=== PATIENT | male | born 1995 | race Caucasian/White ===

== ENCOUNTER 2018-02-26 07:32 | Day surgery (SDC) | payer OTHER ==
[2018-02-19 11:07] LABS: HEMATOCRIT 45.3 % (37.9-51.0); HEMOGLOBIN 16.2 g/dL (13.5-17.0); MEAN CORPUSCULAR HEMOGLOBIN 30.9 pg (27.0-33.4); MEAN CORPUSCULAR HGB CONC 35.6 g/dL (32.0-36.0); MEAN CORPUSCULAR VOLUME 87 fl (80-97); PLATELET COUNT 247 10^3/uL (150-450); RED BLOOD COUNT 5.23 10^6/uL (4.35-5.55); RED CELL DISTRIBUTION WIDTH 13.4 % (11.5-14.0); WHITE BLOOD COUNT 6.4 10^3/uL (4.0-10.5)
[2018-02-19 11:32] LABS: ANION GAP 12 (5-19); BLOOD UREA NITROGEN 15 mg/dL (7-20); CALCIUM 9.9 mg/dL (8.4-10.2); CARBON DIOXIDE 29 mmol/L (22-30); CHLORIDE 103 mmol/L (98-107); GLUCOSE 89 mg/dL (75-110); POTASSIUM 4.5 mmol/L (3.6-5.0); SODIUM 143.6 mmol/L (137-145)
[2018-02-19 12:35] LABS: APPEARANCE,URINE SLIGHTLY-CLOUDY; BILIRUBIN,URINE NEGATIVE (NEGATIVE); COLOR,URINE YELLOW; GLUCOSE, URINE NEGATIVE (NEGATIVE); KETONES,URINE NEGATIVE (NEGATIVE); LEUKOCYTE ESTERASE,URINE NEGATIVE (NEGATIVE); NITRITE,URINE NEGATIVE (NEGATIVE); PROTEIN,URINE NEGATIVE (NEGATIVE); URINE SPECIFIC GRAVITY 1.011; UROBILINOGEN,URINE NEGATIVE mg/dL (<2.0)
[~2018-02-26 07:32] MED LIST: CEFAZOLIN 2 GM/D5W RTU 2 GM/50 ML RTUPB IV PRN; LACTATED RINGERS 1000 ML IV PRN; LIDOCAINE 0.5% INJ-PF (5 MG/ML) 50 ML SDV SUBCUT PRN
[2018-02-26] MEDS ORDERED: DEXAMETHASONE SOD PHOSPHATE INJ 4 MG/1 ML VIAL ONE (07:56)
[2018-02-26] MEDS ORDERED: ONDANSETRON HCL INJ/PF 4 MG/2 ML SDV ONE (07:56)
[2018-02-26] MEDS ORDERED: KETOROLAC TROMETHAMINE 60 MG/2 ML SDV ONE (07:56)
[2018-02-26] MEDS ORDERED: BUPIVACAINE HCL 0.5 % INJ/PF 30 ML SDV ONE (08:47)
[2018-02-26] MEDS ORDERED: FENTANYL CITRATE INJ/PF 250 MCG/5 ML AMPULE ONE (09:57)
[2018-02-26] MEDS ORDERED: DEXMEDETOMIDINE INJ 80 MCG/20 ML VIAL IV ONE (09:58)
[2018-02-26] MEDS ORDERED: MIDAZOLAM 2 MG/2 ML INJ ONE (09:58)
[2018-02-26] MEDS ORDERED: ACETAMINOPHEN 1,000 MG/100 ML RTUPB IV ONE (09:58)
[2018-02-26] MEDS ORDERED: PROPOFOL INJ 200 MG/20 ML VIAL IV ONE (09:58)
[2018-02-26] MEDS ORDERED: FENTANYL CITRATE INJ/PF 100 MCG/2 ML AMPUL ONE ×2 (09:58→13:27)
[2018-02-26] MEDS ORDERED: MEPERIDINE HCL/PF INJ 25 MG/1 ML DISP.SYRIN IV PRN (11:11)
[2018-02-26] MEDS ORDERED: DIPHENHYDRAMINE HCL 50 MG/ML VIAL IV PRN (11:11)
[2018-02-26] MEDS ORDERED: PROMETHAZINE HCL INJ 25 MG/1 ML VIAL IV PRN ×2 (11:11)
[2018-02-26] MEDS ORDERED: FENTANYL CITRATE INJ/PF 100 MCG/2 ML AMPUL IV PRN ×3 (11:11)
--- NOTE | 2018-02-26 13:22 | Operative Report ---
Operative Report DATE OF SURGERY: 02/26/18 PREOPERATIVE DIAGNOSIS: Left proximal scaphoid nonunion POSTOPERATIVE DIAGNOSIS: Left proximal scaphoid nonunion OPERATION: Open reduction internal fixation with vascularized bone graft Left proximal scaphoid nonunion SURGEON: KAMARI BANDA ANESTHESIA: GA COMPLICATIONS: None ESTIMATED BLOOD LOSS: Minimal PROCEDURE: Indication for above procedure: 22-year-old male who sustained injury to his left wrist. Unfortunately patient had delayed presentation and was then found to have a proximal scaphoid nonunion. He was stationed in [place] and then sent to [place] where he was to be set up for operative intervention. Ultimately patient was referred to sc for further evaluation and treatment. We discussed findings on radiographs CT scan and MRI demonstrating the scaphoid nonunion at the high risk of persistent nonunion and development of posttraumatic arthritis. After discussing postoperative prognosis and outcomes including the risk of persistent nonunion despite operative intervention decision was made to proceed with operative intervention. Risks and benefits were explained patient verbalized understanding consented for the procedure. Procedure In Detail: Patient was seen and evaluated in the preoperative holding area. The upper extremity was initialized and marked. Patient received 2g of Ancef IV for bacterial prophylaxis. Patient was taken back to the operative room where transferred to the operative table and placed under general anesthesia. Once they were adequately anesthetized a nonsterile tourniquet was placed on the upper extremity. A surgical team debriefing was performed ensuring all instrumentation was available, the surgical procedure was discussed with possible concerns reviewed. The upper extremity was prepped with chlorhexidine and alcohol and draped in a sterile fashion. A timeout was done identifying correct patient, procedure and extremity everyone in attendance agree with this and verbalized no concerns. The extremity was elevated the tourniquet was inflated to 250 mmHg. Curvilinear skin incision was made beginning at the anatomic snuffbox passing just radial to Giovanni's tubercle. Blunt dissection was performed. Branches of the superficial radial nerve were identified and retracted with a skin flap along with the basilic vein. Any peripheral bleeding was coagulated bipolar cautery. The third dorsal compartment was opened and the EPL retracted in a ulnar direction. I then identified the septum between the first and second dorsal compartments, a portion of the first and second dorsal compartment was released distally. The 1, 2ICSRA was identified within the septum I then bluntly dissected radially and ulnarly to this including the capsule to maintain the pedicle as it exited from the radial artery approximately 1 mm proximal to the radial styloid. Once the pedicle and the vascularized bone graft was mapped out I turned my attention to exposure of the scaphoid nonunion. The ECRB/ECRL retracted in a radial direction exposing the capsule. A transverse capsulotomy was made centered over the nonunion site confirmed with C arm fluoroscopy. There was fragmentation of the cartilage along the radial portion but remaining cartilage remained intact. Given the intact cartilage of the radius and majority of the scaphoid with an adequate proximal pole decision was made to proceed with fixation and bone grafting. With a curette the proximal and distal fragment was debrided until normal-appearing tissue was evident there was a vascularity of the proximal pole in appearance. Once adequately debrided the K wire was placed reducing the fragment. I then measured a Radha 2.0 mm headless compression screw next-day fragment to ensure there is adequate bone for fixation. Once this was confirmed the appropriate K wires placed in a more volar directed position I then placed the [place] 2.0 mm headless compression screw which provided interfragmentary compression. I then turned my attention to harvesting the vascularized bone graft. Via sharp dissection radial and ulnar portions of the periosteum overlying the vascularized bone graft was done under C arm fluoroscopy. I then used a 0.045 K wire to rowdy out the bone graft site which is approximately 1 cm proximal to the radial styloid. I then elevated the pedicle and the bone graft was carefully removed with an osteotome. The most distal portion was completed with an osteotome while my assistant oceanographer lifted the pedicle to avoid iatrogenic injury. This was then freed up to the branching point of the radial artery to allow adequate pedicle length for fixation. The wound was then copiously irrigated with normal saline and I turned my attention to the nonunion site. The graft was tunneled underneath the ECRB/ECRL and EPL and had adequate pedicle length to the nonunion site. The nonunion site was then a cortical window was placed to the nonunion site until the headless compression screw was visualized. The vascularized bone graft and cortical window were contoured to obtain appropriate fit. A K wire was then placed antegrade from dorsal to volar to allow fixation of the pedicle graft. The wound was irrigated with normal saline and cancellus graft from the harvest site was impacted into the nonunion site. I then impacted the vascular pedicle into position and the 0.045 K wire transverse the bone graft to allow fixation. There was adequate fixation of the bone graft noted with range of motion. Final C-arm fluoroscopy radiographs were obtained confirming adequate fixation normal scapholunate angle was noted on lateral view. Under direct visualization once again the headless compression screw was recessed below the articular surface to avoid future hardware irritation. The tourniquet was then deflated. Compression was held for 2 minutes any peripheral bleeding was controlled with bipolar cautery until the wound was dry. Under direct visualization through the skin incision and additional two 0.045 K wires were placed obtaining fixation from the scaphoid into the capitate during retraction of the skin flap the superficial radial nerve was identified and retracted to ensure no evidence of iatrogenic injury. The capsule was closed with interrupted 3-0 Ethibond suture. The bone graft harvest site was impacted with a Gelfoam. The EPL remained within its third dorsal compartment without evidence of stricture. Subcutaneous tissues were then closed with interrupted 4-0 Monocryl suture. Skin was closed with horizontal mattress running 4-0 nylon. 30 cc of 0.5% Marcaine without epinephrine was injected for postoperative pain control. Patient was placed in a volar and dorsal 4 inch fiberglass splint. Sponge counts, instrument counts, needle counts counts were correct. Patient was then awoken from anesthesia. Transferred from the operating room table to the operating room stretcher. There was no intraoperative complications patient tolerated procedure well stable to PACU. Postoperative plan: Patient will follow-up in the office 2 weeks postoperatively. Will obtain radiographs at that time. Plan will be to maintain K wires for 6-10 weeks pending radiographic findings and patient comfort.
--- NOTE | 2018-02-26 13:22 | Discharge Summary ---
Discharge Summary (SDC) - Discharge Final Diagnosis: Left proximal scaphoid nonunion Date of Surgery: 02/26/18 Discharge Date: 02/26/18 Condition: Good Treatment or Instructions: Schedule Follow Up w/ Dr. Alex Ko @ [facility] for Surgery to be seen in 10-14 days or as scheduled [place]: [place]: [place]: Ice and elevate Keep splint clean/dry/intact. If your fingers become numb please unwrap the Aj wrap but leave the splint in place, if the sensation does not return within 30 minutes please return to the emergency department. May begin finger range of motion attempting to make full fist. Please use ibuprofen (Motrin or Advil) 600-800 mg every 8 hours as needed for pain or fever DO NOT TAKE w/ TORADOL may use once TORADOL complete. You may also use acetaminophen (Tylenol) 1000 mg every 4-6 hours as needed for pain or fever. Please be aware that many medications contain acetaminophen, do not exceed a total of 1000 mg of acetaminophen every 6 hours. If ibuprofen and acetaminophen are not sufficient for your pain you may take the Percocet/[place]. Please be aware that the Percocet/[place]hel does contain Tylenol. Stool softener of choice when on pain medication. Prescriptions: Ketorolac Tromethamine [Toradol 10 mg Tablet] 10 mg PO Q6 #10 tablet Oxycodone HCl/Acetaminophen [Percocet 5-325 mg Tablet] 1 tab PO Q6 #35 tab Discharge Diet: As Tolerated Respiratory Treatments at Home: Deep Breathing/Coughing Discharge Activity: No Lifting Over 10 Pounds, No Lifting/Push/Pulling Report the Following to Your Physician Immediately: Fever over 101 Degrees, Unusual Bleeding, Redness, Swelling, Warmth, Increased Soreness
[2018-02-26] MEDS ORDERED: ONDANSETRON HCL INJ/PF 4 MG/2 ML SDV IV PRN (13:23)
[2018-02-26] MEDS ORDERED: OXYCODONE-ACETAMINOPHEN 5-325 MG TABLET PO PRN (13:23)
[2018-02-26] MEDS ORDERED: HYDROMORPHONE HCL INJ/PF 2 MG/ML AMPULE IV PRN (13:23)
--- NOTE | 2018-02-26 14:18 | RADIOLOGY REPORT (SQ) ---
EXAM DESCRIPTION: WRIST LEFT 3 VIEWS; NO CHG FLUORO COMPLETED DATE/TIME: 02/26/2018 2:08 pm REASON FOR STUDY: ORIF LEFT WRIST ASST WITH FLUORO IN OR S62.032K DISP FX OF PROX 3RD OF NAVIC BONE OF L WRS, 7THK COMPARISON: None. FLUOROSCOPY TIME: 1 minute 6 seconds 5 digital fluoro images saved to PACS. TECHNIQUE: Intra-operative images acquired during surgical procedure to evaluate progress. NUMBER OF IMAGES: 5 LIMITATIONS: None. FINDINGS: Intraprocedure imaging and fluoro during K-wire placement across the carpal bones. Sclero tic proximal half scaphoid bone. Please see the operative report for further details IMPRESSION: Intra procedural imaging and fluoro COMMENT: Quality ID [id number]: Final reports for procedures using fluoroscopy that document radiation exp osure indices, or exposure time and number of fluorographic images (if radiation exposure indices are not available) Please consult full operative report of the attending physician for description of the procedure. TECHNICAL DOCUMENTATION: JOB ID: [id number] [employer]- All Rights Reserved Reading location - IP/workstation name: [email or web address]
--- NOTE | 2018-02-26 14:18 | RADIOLOGY REPORT (SQ) ---
EXAM DESCRIPTION: WRIST LEFT 3 VIEWS; NO CHG FLUORO COMPLETED DATE/TIME: 02/26/2018 2:08 pm REASON FOR STUDY: ORIF LEFT WRIST ASST WITH FLUORO IN OR S62.032K DISP FX OF PROX 3RD OF NAVIC BONE OF L WRS, 7THK COMPARISON: None. FLUOROSCOPY TIME: 1 minute 6 seconds 5 digital fluoro images saved to PACS. TECHNIQUE: Intra-operative images acquired during surgical procedure to evaluate progress. NUMBER OF IMAGES: 5 LIMITATIONS: None. FINDINGS: Intraprocedure imaging and fluoro during K-wire placement across the carpal bones. Sclero tic proximal half scaphoid bone. Please see the operative report for further details IMPRESSION: Intra procedural imaging and fluoro COMMENT: Quality ID [id number]: Final reports for procedures using fluoroscopy that document radiation exp osure indices, or exposure time and number of fluorographic images (if radiation exposure indices are not available) Please consult full operative report of the attending physician for description of the procedure. TECHNICAL DOCUMENTATION: JOB ID: [id number] [employer]- All Rights Reserved Reading location - IP/workstation name: [email or web address]
[2018-02-26 16:56] VITALS: BP 109/54
== END 2018-02-26 15:40 | disposition home or self-care (01) ==
LOC: OROUT 07:32
PROVIDERS: ATTEND Orthopaedic Surgery
DX: S62.032K Displaced fracture of proximal third of navicular [scaphoid] bone of left wrist, subsequent encounter for fracture with nonunion (principal); Y93.61 Activity, american tackle football; X58.XXXD Exposure to other specified factors, subsequent encounter; F17.210 Nicotine dependence, cigarettes, uncomplicated
CPT/HCPCS: 36415; 85027; 80048; 81001; 73110; 25440; C1713 ×3; J2250; J3490 ×2; J1100; J1885; J3010 ×2; J2405; J2704; J0690; J0131; 01830

== ENCOUNTER 2018-11-26 05:35 | Day surgery (SDC) | payer OTHER ==
[2018-11-19 09:42] LABS: ABSOLUTE BASOPHILS # (AUTO) 0.1 10^3/uL (0.0-0.2); ABSOLUTE EOSINOPHILS # (AUTO) 0.2 10^3/uL (0.0-0.6); ABSOLUTE LYMPHOCYTES (AUTO) 2.1 10^3/uL (0.5-4.7); ABSOLUTE MONOCYTES (AUTO) 0.5 10^3/uL (0.1-1.4); ABSOLUTE NEUT (AUTO) 3.5 10^3/uL (1.7-8.2); EOSINOPHILS % (AUTO) 2.6 % (0-6); HEMATOCRIT 48.9 % (37.9-51.0); LYMPHOCYTES % (AUTO) 33.8 % (13-45); MEAN CORPUSCULAR HEMOGLOBIN 30.6 pg (27.0-33.4); MEAN CORPUSCULAR HGB CONC 34.8 g/dL (32.0-36.0); MEAN CORPUSCULAR VOLUME 88 fl (80-97); MONOCYTES % (AUTO) 7.6 % (3-13); PLATELET COUNT 301 10^3/uL (150-450); RED BLOOD COUNT 5.56 10^6/uL (4.35-5.55); TOTAL CELLS COUNTED % (AUTO) 100 %; WHITE BLOOD COUNT 6.3 10^3/uL (4.0-10.5)
[2018-11-19 09:57] LABS: ANION GAP 10 (5-19); BLOOD UREA NITROGEN 14 mg/dL (7-20); CALCIUM 10.4 mg/dL (8.4-10.2); CARBON DIOXIDE 31 mmol/L (22-30); CHLORIDE 103 mmol/L (98-107); GLUCOSE 86 mg/dL (75-110); POTASSIUM 4.8 mmol/L (3.6-5.0); SODIUM 143.5 mmol/L (137-145)
[2018-11-26] MEDS ORDERED: MIDAZOLAM 2 MG/2 ML INJ ONE (06:50)
[2018-11-26] MEDS ORDERED: KETAMINE HCL INJ 500 MG/10 ML VIAL ONE (06:50)
[2018-11-26] MEDS ORDERED: FENTANYL CITRATE INJ/PF 250 MCG/5 ML AMPULE ONE (06:51)
[2018-11-26] MEDS ORDERED: PROPOFOL INJ 200 MG/20 ML VIAL IV ONE (06:51)
[2018-11-26] MEDS ORDERED: LIDOCAINE 1% INJ-PF (10 MG/ML) 30 ML SDV ONE (07:12)
[2018-11-26] MEDS ORDERED: BUPIVACAINE HCL 0.5 % INJ/PF 30 ML SDV ONE (07:12)
[2018-11-26] MEDS ORDERED: CEFAZOLIN INJ 1 GM VIAL ONE (08:00)
[2018-11-26] MEDS ORDERED: LIDOCAINE 2% INJ (20 MG/ML) 20 ML MDV ONE (08:21)
[2018-11-26] MEDS ORDERED: LIDOCAINE 2%/EPINEPHRINE INJ 20 ML VIAL ONE (08:21)
[2018-11-26] MEDS ORDERED: PROMETHAZINE HCL INJ 25 MG/1 ML VIAL IV PRN (08:21)
[2018-11-26] MEDS ORDERED: FENTANYL CITRATE INJ/PF 100 MCG/2 ML AMPUL IV PRN ×3 (08:21)
[2018-11-26] MEDS ORDERED: DIPHENHYDRAMINE HCL 50 MG/ML VIAL IV PRN (08:21)
[2018-11-26] MEDS ORDERED: MEPERIDINE HCL/PF INJ 25 MG/1 ML DISP.SYRIN IV PRN (08:21)
[2018-11-26] MEDS ORDERED: MORPHINE SULFATE 10 MG/ML INJ IV PRN ×2 (08:21→09:56)
[2018-11-26] MEDS ORDERED: ONDANSETRON HCL INJ/PF 4 MG/2 ML SDV IV PRN ×2 (08:21→09:56)
[2018-11-26] MEDS ORDERED: ROPIVACAINE HCL 0.5% INJ/PF (5 MG/1 ML) 30 ML SDV ONE (08:22)
[2018-11-26] MEDS ORDERED: OXYCODONE-ACETAMINOPHEN 5-325 MG TABLET PO PRN (09:56)
--- NOTE | 2018-11-26 10:08 | Discharge Summary ---
Discharge Summary (SDC) - Discharge Final Diagnosis: Left proximal pole scaphoid nonunion Date of Surgery: 11/26/18 Discharge Date: 11/26/18 Condition: Good Treatment or Instructions: Schedule Follow Up w/ Dr. Alex Ko @ [facility] for Surgery to be seen in 10-14 days or as scheduled [place]: [place]: [place]: May remove dressing on postop day #3, keep incision covered and dry. Ice and elevate May begin finger range of motion attempting to make full fist. Stool softener of choice when on pain medication. ORAL NARCOTIC MEDICATION: You have been given a prescription for pain control. This medication is a narcotic. It's best taken with food, as nausea can result if taken on an empty stomach. Don't operate machinery or drive within six hours of taking this medication. Do not combine this medicine with alcohol, or with any medication which can cause sedation (such as cold tablets or sleeping pills) unless you get permission from the physician. Narcotics tend to cause constipation. If possible, drink plenty of fluids and eat a diet high in fiber and fruits. Please be aware that prescription narcotics also have the potential for abuse. People become addicted to these medications because of the general sense of wellbeing that they induce. This feeling along with a significant reduction in tension, anxiety, and aggression provides a stimulating seductive quality to these drugs. Once your pain is under control, we encourage you to discard your unused narcotics. Prescriptions: Ketorolac Tromethamine [Toradol 10 mg Tablet] 10 mg PO Q8HP PRN #12 tablet PRN Reason: Oxycodone HCl/Acetaminophen [Percocet 5-325 mg Tablet] 1 tab PO Q6 PRN #25 tab PRN Reason: Discharge Diet: As Tolerated Respiratory Treatments at Home: Deep Breathing/Coughing Discharge Activity: No Lifting Over 10 Pounds, No Lifting/Push/Pulling Report the Following to Your Physician Immediately: Fever over 101 Degrees, Unusual Bleeding, Redness, Swelling, Warmth, Increased Soreness
--- NOTE | 2018-11-26 10:10 | Operative Report ---
Operative Report DATE OF SURGERY: 11/26/18 PREOPERATIVE DIAGNOSIS: Left wrist proximal pole scaphoid nonunion with failed vascularized bone graft POSTOPERATIVE DIAGNOSIS: Same OPERATION: Removal hardware left wrist with scaphoid excision midcarpal arthrodesis, PIN neurectomy SURGEON: KAMARI BANDA ANESTHESIA: GA COMPLICATIONS: None ESTIMATED BLOOD LOSS: Minimal PROCEDURE: Indication for above procedure: 23-year-old male who sustained a proximal pole scaphoid nonunion. Underwent attempted vascularized bone graft unfortunately patient had persistent nonunion. Despite measures decision was then made to proceed with salvage procedure which included midcarpal arthrodesis. Postoperative expectations outcomes were explained to the patient who verbalized understanding consented for surgical procedure. Procedure In Detail: Patient was seen and evaluated in the preoperative holding area. The LEFT upper extremity was initialized and marked. Patient received 2g of Ancef IV for bacterial prophylaxis. Patient was taken back to the operative room where transferred to the operative table and placed under general anesthesia. Once they were adequately anesthetized a nonsterile tourniquet was placed on the upper extremity. A surgical team debriefing was performed ensuring all instrumentation was available, the surgical procedure was discussed with possible concerns reviewed. The upper extremity was prepped with chlorhexidine and alcohol and draped in a sterile fashion. A timeout was done identifying correct patient, procedure and extremity everyone in attendance agree with this and verbalized no concerns. The extremity was exsanguinated the tourniquet was inflated to 250 mmHg. Previous skin incision was utilized. Blunt dissection was performed. Plan superficial radial nerve was identified within the scar tissue and retracted. There was significant scarring between the second and third dorsal compartments. The interval between the third and fourth dorsal compartment was utilized. The EPL tendon was identified and transposed in a radial direction. Along the floor the fourth dorsal compartment remnant of the posterior interosseous nerve was identified and a PIN neurectomy was performed. A T-shaped capsulotomy was then made within the radiocarpal joint. There is significant scar tissue noted throughout the radiocarpal and midcarpal joint. This was then excised to expose the scaphoid. Nonunion of the proximal pole of scaphoid was confirmed. Previous screw was identified and removed. Meticulous dissection was performed around the scaphoid and this was then successfully excised. On the back table cancellus bone was harvested from the scaphoid to use for later arthrodesis. Under direct visualization there is no evidence of radial- lunate degeneration thus decision was made to proceed with midcarpal arthrodesis. The proximal aspect of the capitate was debrided down to cancellus bone. With a rongeur and osteotome the distal aspect of the lunate was debrided until normal-appearing cancellus bone was identified. A 0.045 K wire was placed into the capitate and lunate to act as joysticks. The capitolunate articulation was reduced correcting the capitolunate angle and deformity DISI. C-arm fluoroscopy was obtained confirming appropriate coverage of the capitate/lunate and appropriate alignment. A reduction tenaculum was placed around the capitate-lunate articulation to provide compression. 0.045 K wires placed transarticular to maintain reduction. With a measuring device for the NotehallE speed fix wm a 13 x 10 mm staple was chosen. K wires were placed proximally within the lunate and distally within the capitate to ensure adequate placement of the K wire. K wire was and in the ulnar direction along the lunate to avoid cut out radially. This was then drilled and a trough was made between the staple arms. The 13 x 10 mm staple was then impacted into position providing compression radially. Once again K wires were placed proximally distally and a 13 x 10 mm staple was chosen C arm fluoroscopy was obtained confirming appropriate placement. The proximal distal aspect was drilled and a trough made. The 13 x 10 mm staple was impacted into position providing optimal compression. Wound was then copiously irrigated with normal saline. K wires were removed. Wrist demonstrated 6 surgery of flexion with 65 degrees of extension. There is no impingement of the hardware along the radial-carpal joint. C-arm fluoroscopy was obtained confirming compression of the midcarpal arthrodesis with acceptable alignment. Previous bone graft from the distal scaphoid was then impacted into the defect. Capsulotomy was closed with interrupted 3-0 Vicryl suture. Retinaculum was closed with interrupted 3-0 Monocryl suture leaving the EPL transposed. Subcutaneous tissues were closed with interrupted 3-0 Monocryl suture. Skin was closed with interrupted horizontal mattress 4-0 nylon suture. Was dressed Xeroform 4 x 4's and patient was placed in a volar and dorsal fiberglass splint maintaining the neutral position. Sponge counts, instrument counts, needle counts were correct. Patient was then awoken from anesthesia. Transferred from the operating room table to the operating room stretcher. There was no intraoperative complications patient tolerated procedure well stable to PACU. Postoperative plan: Patient follow-up the office in 2 weeks at which point we will obtain radiographs. Patient will begin bone stimulator immediately. Will obtain CT scan to confirm union at approximately 6 weeks postoperatively.
[2018-11-26] MEDS ORDERED: LIDOCAINE 2% INJ-PF (100 MG/5 ML) SYRINGE ONE (10:20)
[2018-11-26] MEDS ORDERED: ACETAMINOPHEN 1,000 MG/100 ML RTUPB IV ONE (10:55)
[2018-11-26] MEDS ORDERED: KETOROLAC TROMETHAMINE INJ/PF 30 MG/1 ML SDV ONE (10:55)
--- NOTE | 2018-11-26 11:04 | RADIOLOGY REPORT (SQ) ---
EXAM DESCRIPTION: WRIST LEFT 3 VIEWS; NO CHG FLUORO COMPLETED DATE/TIME: 11/26/2018 10:20 am REASON FOR STUDY: HARDWARE REMOVAL LEFT WRIST FUSION ASST WITH FLUORO IN OR S62.032K DISP FX OF PRO X 3RD OF NAVIC BONE OF L WRS, 7THK COMPARISON: Left wrist films 02/26/2018 FLUOROSCOPY TIME: 37 seconds 5 digital C-arm images saved to PACS. TECHNIQUE: Intra-operative images acquired during surgical procedure to evaluate progress. NUMBER OF IMAGES: 5 digital C-arm images LIMITATIONS: None. FINDINGS: Post resection of the scaphoid bone and fusion at the lunatocapitate joint. Good alignmen t. Please see the operative report. IMPRESSION: IMAGE(S) OBTAINED DURING PROCEDURE. COMMENT: Quality ID 145: Final reports for procedures using fluoroscopy that document radiation exp osure indices, or exposure time and number of fluorographic images (if radiation exposure indices are not available) Please consult full operative report of the attending physician for description of the procedure. TECHNICAL DOCUMENTATION: JOB ID: [id number] [employer]- All Rights Reserved Reading location - IP/workstation name: [email or web address]
--- NOTE | 2018-11-26 11:04 | RADIOLOGY REPORT (SQ) ---
EXAM DESCRIPTION: WRIST LEFT 3 VIEWS; NO CHG FLUORO COMPLETED DATE/TIME: 11/26/2018 10:20 am REASON FOR STUDY: HARDWARE REMOVAL LEFT WRIST FUSION ASST WITH FLUORO IN OR S62.032K DISP FX OF PRO X 3RD OF NAVIC BONE OF L WRS, 7THK COMPARISON: Left wrist films 02/26/2018 FLUOROSCOPY TIME: 37 seconds 5 digital C-arm images saved to PACS. TECHNIQUE: Intra-operative images acquired during surgical procedure to evaluate progress. NUMBER OF IMAGES: 5 digital C-arm images LIMITATIONS: None. FINDINGS: Post resection of the scaphoid bone and fusion at the lunatocapitate joint. Good alignmen t. Please see the operative report. IMPRESSION: IMAGE(S) OBTAINED DURING PROCEDURE. COMMENT: Quality ID [id number]: Final reports for procedures using fluoroscopy that document radiation exp osure indices, or exposure time and number of fluorographic images (if radiation exposure indices are not available) Please consult full operative report of the attending physician for description of the procedure. TECHNICAL DOCUMENTATION: JOB ID: [id number] [employer]- All Rights Reserved Reading location - IP/workstation name: [email or web address]
[2018-11-26] MEDS ORDERED: OXYCODONE-ACETAMINOPHEN 5-325 MG TABLET ONE (11:31)
[2018-11-26 13:08] VITALS: BP 123/68
[2018-11-26] MEDS ORDERED: DEXAMETHASONE SOD PHOSPHATE INJ 4 MG/1 ML VIAL ONE (14:44)
[2018-11-26] MEDS ORDERED: ONDANSETRON HCL INJ/PF 4 MG/2 ML SDV ONE (14:44)
[2018-11-26] MEDS ORDERED: GLYCOPYRROLATE 1 MG/5 ML SYRINGE ONE (14:44)
== END 2018-11-26 12:40 | disposition home or self-care (01) ==
LOC: OROUT 05:35
PROVIDERS: ATTEND Orthopaedic Surgery
DX: S62.032K Displaced fracture of proximal third of navicular [scaphoid] bone of left wrist, subsequent encounter for fracture with nonunion (principal); X58.XXXD Exposure to other specified factors, subsequent encounter
CPT/HCPCS: 64772; 20680; 25820; 36415; 85025; 80048; 73110; C1713; C1776; J2795; J2250; J3490 ×3; J0690; J1100; J3010; J2001; J1885; J2405; J2704; J0131; 01830